=== PATIENT | female | born 1955 | race Caucasian/White ===

== ENCOUNTER 2017-03-18 17:51 | Emergency (ER) | payer SELFPAY ==
[~2017-03-18] VITALS: Ht 160 cm; Wt 74.4 kg
[2017-03-18 20:24] VITALS: BP 126/85
== END 2017-03-18 21:06 | disposition home or self-care (01) ==
LOC: ED 17:51
DX: S29.012A Strain of muscle and tendon of back wall of thorax, initial encounter (principal); S09.90XA Unspecified injury of head, initial encounter; I10 Essential (primary) hypertension; M47.9 Spondylosis, unspecified; V89.2XXA Person injured in unspecified motor-vehicle accident, traffic, initial encounter; Y93.89 Activity, other specified; Y99.8 Other external cause status; Y92.89 Other specified places as the place of occurrence of the external cause
CPT/HCPCS: 72072